=== PATIENT | male | born 1965 | race African-American/Black ===

== ENCOUNTER 2017-02-02 17:05 | Emergency (ER) | payer BC, OTHER ==
[~2017-02-02] VITALS: Wt 147.4 kg
[~2017-02-02 17:05] MED LIST: ASPIRIN81 M1 PO; COREG12.5 MG PO; HYDR12.5C PO; LISINOPRIL10 MG PO; METFORMIN500 MG PO; MULTIVITAMIN1 CTB PO; NORVASC5 MG PO; PLAQUENIL200 MG PO; SEPTRA DS 800 M1 TAB PO; SKELAXIN400 MG PO; TERAZOSIN5 MG PO; TRAMADOL HCL50 MG PO; VITAMIN B1100 MCG/ML IM
[2017-02-02 17:08] VITALS: BP 152/94
[2017-02-02] MEDS ORDERED: B121000 MCG/1 IM (17:09)
[2017-02-02] MEDS ORDERED: LISINOPRIL10 M1 PO (17:09)
[2017-02-02] MEDS ORDERED: METFORMIN HCL500 MG PO (17:09)
[2017-02-02] MEDS ORDERED: GUAIFENESIN PO (17:10)
[2017-02-02] MEDS ORDERED: [UNRECOGNIZED DRUG - OTHER] PO (17:10)
[2017-02-02] MEDS ORDERED: TERAZOSIN HCL10 M1 PO (17:10)
[2017-02-02] MEDS ORDERED: AMLODIPINE BESYL5 MG PO (17:10)
[2017-02-02] MEDS ORDERED: NAPROSYN500 MG PO (17:19)
== END 2017-02-02 18:39 | disposition home or self-care (01) ==
LOC: ED 17:05
DX: S63.253A Unspecified dislocation of left middle finger, initial encounter (principal); R03.0 Elevated blood-pressure reading, without diagnosis of hypertension; Z79.899 Other long term (current) drug therapy; Z79.82 Long term (current) use of aspirin; X58.XXXA Exposure to other specified factors, initial encounter; Y93.9 Activity, unspecified; Y92.9 Unspecified place or not applicable; Y99.9 Unspecified external cause status

== ENCOUNTER 2017-02-26 11:07 | Emergency (ER) | payer BC, OTHER ==
[~2017-02-26] VITALS: Ht 187.9 cm; Wt 158.8 kg
[~2017-02-26 11:07] MED LIST changes: +AMLODIPINE BESYL5 MG PO; +B121000 MCG/1 IM; +GUAIFENESIN PO; +LISINOPRIL10 M1 PO; +METFORMIN HCL500 MG PO; +NAPROSYN500 MG PO; +TERAZOSIN HCL10 M1 PO; +[UNRECOGNIZED DRUG - OTHER] PO
[2017-02-26 11:31] VITALS: BP 142/78
[2017-02-26 11:58] LABS: BASO % 0.2 % (0.0-1.0); EOS # 0.1 10*3/uL (0.0-0.4); EOS % 1.7 % (1.0-4.0); HEMATOCRIT 37.6 % (42.0-52.0); HEMOGLOBIN 11.7 g/dl (14.0-18.0); LYMPH % 25.2 % (27.0-41.0); MEAN CELL VOLUME 80.7 fl (80.0-94.0); MEAN CORPUSCULAR HGB 25.1 pg (27.0-31.0); MEAN CORPUSCULAR HGB CONC 31.1 g/dl (33.0-37.0); MEAN PLATELET VOLUME 10.4 fl (9.6-12.3); MONO # 0.5 10*3/uL (0.1-1.0); MONO % 5.9 % (3.0-9.0); NEUT # 5.4 10*3/uL (2.3-7.9); NEUT % 66.9 % (47.0-73.0); PLATELET COUNT AUTOMATED 251 10*3/uL (130-400); RED BLOOD COUNT 4.66 10*6/uL (4.50-5.90); RED CELL DISTRI WIDTH 16.6 % (0-14.5); WHITE BLOOD COUNT 8.1 10*3/uL (4.8-10.8)
[2017-02-26 12:13] LABS: ALBUMIN 3.4 gm/dl (3.1-4.5); ALKALINE PHOSPHATASE 83 U/L (45-117); BILIRUBIN, TOTAL 0.8 mg/dl (0.2-1.0); BUN 11 mg/dl (7-24); CARBON DIOXIDE 26 mmol/L (21-32); CHLORIDE 105 mmol/L (98-107); EST GLOM FILT AFRICAN AMERICAN > 60 ml/min; GLUCOSE 81 mg/dL (65-99); MAGNESIUM 1.8 mg/dL (1.5-2.1); POTASSIUM 3.8 mmol/L (3.5-5.1); SGOT/AST 16 IU/L (3-35); SGPT/ALT 18 U/L (12-78); SODIUM 138 mmol/L (136-145)
[2017-02-26 12:15] LABS: BILIRUBIN NEGATIVE (NEGATIVE); BLOOD 1+ (NEGATIVE); CLARITY CLEAR (CLEAR); COLOR YELLOW (YELLOW); GLUCOSE NEGATIVE (NEGATIVE); KETONE NEGATIVE (NEGATIVE); LEUKO ESTERASE NEGATIVE (NEGATIVE); NITRITE NEGATIVE (NEGATIVE); PH 5.5 (5.0-9.0); PROTEIN NEGATIVE (NEGATIVE)
[2017-02-26 12:24] LABS: MUCOUS 1+; URINE REFLEX COMMENT YES (NO); WBC 0-2 wbc/hpf (0-5)
== END 2017-02-26 12:54 | disposition home or self-care (01) ==
LOC: ED 11:07
PROVIDERS: Nurse Practitioner Family
DX: Z00.00 Encounter for general adult medical examination without abnormal findings (principal); Z98.84 Bariatric surgery status; Z79.82 Long term (current) use of aspirin

== ENCOUNTER → 2018-03-13 | Day surgery (SDC) | payer BC, OTHER ==
[~2018-03-13] VITALS: Ht 187.9 cm; Wt 160.6 kg
[~2018-03-13] MED LIST changes: +COZAAR50 M1 PO; +GLUCOPHAGE500 M1 PO; +LIPITOR20 MG PO; -METFORMIN HCL500 MG PO
--- NOTE | ~2018-03-13 | O ---
[place], [place] OPERATIVE NOTE NAME: [facility]NA VALE [facility] #: [id number] UNIT #: [id number] ROOM: DOCTOR: EROS DE LA CRUZ MD BIRTHDATE: [birth year] DOS: 03/13/2018 PREOPERATIVE DIAGNOSIS: Cataract, right eye. POSTOPERATIVE DIAGNOSIS: Cataract, right eye. OPERATION: Extracapsular cataract extraction by phacoemulsification with posterior chamber intraocular lens implantation, right eye. ANESTHESIA: Monitored standby. OPERATIVE FINDINGS AND PROCEDURE: 2% Xylocaine topical anesthetic gel was applied to the eye in the preop area. The patient was taken to the operating room and prepped and draped in the standard fashion for sterile intraocular surgery. A time out procedure was performed verifying correct patient, correct site and corrects lens with Alexandro De La Cruz M.D. The operating microscope was swung into position and the lid speculum was inserted. Using a Nurys paracentesis blade, a paracentesis was made through clear cornea. Viscoelastic was used to fill the anterior chamber. Using a metal keratome a 2.4 mm self-sealing clear corneal cataract incision was made temporally at the limbus. Using a pre-bent 25 gauge cystotome needle, a standard continuous curvilinear capsulorrhexis was performed. The anterior capsule was removed with forceps. The lens nucleus was hydrodissected and phacoemulsified in the posterior chamber. Cortical material was removed with the irrigation aspiration hand piece and the posterior capsule was then polished with a curet under irrigation. The posterior chamber and capsular bag were filled with viscoelastic. A posterior chamber intraocular lens manufactured by: [employer], [id number], and 18.5 diopters in strength were then inserted into the posterior chamber and within the capsular bag using the lens cartridge and injector system. Viscoelastic was removed using the irrigation aspiration handpiece. The anterior chamber was filled with balanced salt solution through the paracentesis. Both the paracentesis site and cataract incisions were hydrated with BSS and verified to be water-tight and self-sealing. Cefuroxime 1 mg/0.1 mL was injected into the anterior chamber through the paracentesis site. The incision checked to be water-tight using a Weck-Pilar sponge. The integrity of the cataract wound and ocular tension were checked. Lid speculum and drapes were removed. The patient was transferred from the operating room to the recovery room in satisfactory condition. [place], [place] OPERATIVE NOTE NAME: LEANNA VALE UNIT #: [id number] ROOM: DOCTOR: EROS DE LA CRUZ MD BIRTHDATE: [birth year] EROS DE LA CRUZ MD CM:OPRECORD:OPERATIVE NOTE 1210 1252 EROS DE LA CRUZ MD 03/13/18 1251 interface
[2018-03-13 07:00] VITALS: BP 108/58
[2018-03-13 08:41] VITALS: BP 117/72
[2018-03-13 08:56] VITALS: BP 119/69
[2018-03-13 09:14] VITALS: BP 109/69
== END | disposition home or self-care (01) ==
LOC: SDC 03-08 08:45
DX: E11.36 Type 2 diabetes mellitus with diabetic cataract (principal); H25.811 Combined forms of age-related cataract, right eye; I10 Essential (primary) hypertension; K21.9 Gastro-esophageal reflux disease without esophagitis; D64.9 Anemia, unspecified; Z79.899 Other long term (current) drug therapy; Z98.890 Other specified postprocedural states

== ENCOUNTER 2019-10-24 20:57 | Emergency (ER) | payer BC, OTHER ==
[~2019-10-24] VITALS: Wt 164.7 kg
[~2019-10-24 20:57] MED LIST changes: +DOXYCYCLINE100 M3 PO; +MEDROL DOSEPAK4 MG PO; +PROAIR HFA8.5 GM INH
[2019-10-24 22:12] LABS: BASO % 0.4 % (0.0-1.0); EOS # 0.2 10*3/uL (0.0-0.4); EOS % 1.9 % (1.0-4.0); HEMATOCRIT 32.8 % (42.0-52.0); LYMPH # 2.1 10*3/uL (1.3-4.4); LYMPH % 26.9 % (27.0-41.0); MEAN CELL VOLUME 79.8 fl (80.0-94.0); MEAN CORPUSCULAR HGB 24.3 pg (27.0-31.0); MEAN CORPUSCULAR HGB CONC 30.5 g/dl (33.0-37.0); MEAN PLATELET VOLUME 11.2 fl (9.6-12.3); MONO % 11.9 % (3.0-9.0); NEUT # 4.7 10*3/uL (2.3-7.9); NEUT % 58.5 % (47.0-73.0); PLATELET COUNT AUTOMATED 247 10*3/uL (130-400); RED BLOOD COUNT 4.11 10*6/uL (4.50-5.90); RED CELL DISTRI WIDTH 16.6 % (0-14.5)
[2019-10-24 22:25] LABS: ALBUMIN 3.5 gm/dl (3.1-4.5); ALKALINE PHOSPHATASE 76 U/L (45-117); BUN 12 mg/dl (7-24); CHLORIDE 112 mmol/L (98-107); CREATININE 1.33 mg/dL (0.70-1.30); LIPASE 104 U/L (73-393); POTASSIUM 3.7 mmol/L (3.5-5.1); SGOT/AST 14 IU/L (3-35); SGPT/ALT 20 U/L (12-78); SODIUM 143 mmol/L (136-145); TOTAL PROTEIN 7.4 gm/dL (6.4-8.2)
[2019-10-24 22:32] LABS: THYROID STIM HORMONE (HS) 0.743 uIU/ml (0.358-4.75)
[2019-10-25 00:49] VITALS: BP 132/68
== END 2019-10-25 01:05 | disposition home or self-care (01) ==
LOC: ED 20:57
PROVIDERS: Emergency Medicine Emergency Medical Services
DX: I10 Essential (primary) hypertension (principal); E11.9 Type 2 diabetes mellitus without complications; K21.9 Gastro-esophageal reflux disease without esophagitis; Z79.899 Other long term (current) drug therapy; Z79.82 Long term (current) use of aspirin

== ENCOUNTER → 2020-05-03 | Outpatient (CLI) | payer BC, OTHER | END | disposition home or self-care (01) | LOC: COVID19 08:15 | PROVIDERS: ATTEND Physician Assistant Medical | DX: Z20.828 Contact with and (suspected) exposure to other viral communicable diseases (principal) ==